=== PATIENT | female | born 1930 | race Caucasian/White ===

== ENCOUNTER 2016-09-19 22:48 | Emergency (ER) | payer MEDICARE, OTHER ==
[~2016-09-19] VITALS: Ht 160 cm; Wt 62.6 kg
[~2016-09-19 22:48] MED LIST: ACET-2605 GT; ACET650S26 GT; BISA10SU8 RC; BLOO-140 IN; DEXT15DR EACHEYE; DOCU-270 GT; FLUC100P4 IV; FURO40TA5 GT; HYDR-3326 GT; INSU100V3 SQ; MAG30ORA GT; MAGN400O6 GT; MERO1VIA3 IV; METO5SOL GT; MULT-24 GT; NUT.237L31 GT; ONDA-25 GT; PANT40SU2 GT; POTA20PA15 GT; RIVA10TA GT; VANC1VIA GT; VIT500LI GT; ZINC220C6 GT
[2016-09-19] MEDS ORDERED: BUPIVACAINE 0.25% 75 MG/30 ML VIAL ONE (23:24)
[2016-09-19 23:28] VITALS: BP 113/63
[2016-09-19] MEDS ORDERED: BUPIVACAINE MPF W/EPI 0.25% 30 ML VIAL IJ ONE (23:30)
[2016-09-20 02:08] VITALS: BP 124/66
[2016-09-20 04:45] VITALS: BP 115/68
== END 2016-09-20 04:46 | disposition home or self-care (01) ==
LOC: ER 22:50
DX: L02.01 Cutaneous abscess of face (principal); I10 Essential (primary) hypertension; K21.9 Gastro-esophageal reflux disease without esophagitis; F03.90 Unspecified dementia, unspecified severity, without behavioral disturbance, psychotic disturbance, mood disturbance, and anxiety; M19.90 Unspecified osteoarthritis, unspecified site; J44.9 Chronic obstructive pulmonary disease, unspecified; F41.9 Anxiety disorder, unspecified; Z86.73 Personal history of transient ischemic attack (TIA), and cerebral infarction without residual deficits; G20 Parkinson's disease; Z98.890 Other specified postprocedural states
CPT/HCPCS: 10060; 70450; 99284; A4606; A6403; A6407; J3490; Z7610

== ENCOUNTER 2017-05-22 14:50 | Inpatient (IN) | payer MEDICARE, OTHER ==
[~2017-05-22] VITALS: Ht 157.5 cm; Wt 85.3 kg
[~2017-05-22 14:50] MED LIST changes: -ACET-2605 GT; +AMLO2.5T GT; +CARB1TAB19 GT; +CHLO15MO2 MM; +CLON0.1T GT; +CLOP75TA2 GT; -DEXT15DR EACHEYE; -DOCU-270 GT; +DOCU50LI GT; -FLUC100P4 IV; +IPRA3AMP IH; -MAG30ORA GT; -MERO1VIA3 IV; -METO5SOL GT; -MULT-24 GT; +NA P133E RC; -ONDA-25 GT; +POTA20LI4 GT; -POTA20PA15 GT; -RIVA10TA GT; +SIMV20TA6 GT; -VANC1VIA GT; -VIT500LI GT; -ZINC220C6 GT
--- NOTE | 2017-05-22 14:50 | NUR ---
BB PRIVATE EMS FROM [facility] FOR ABNORMAL LABS WBC-34, K-6.8, BUN-61. GOWNED PT. PLACED ON MONITOR. AWAITING MD ORDER ORDER. [facility] #8 AC 10 TV 500 FIO2 40 % PEEP 5 . PT HAS LEFT WRIST #22 IV ACCESS DIRECTOR OF MANAGED SERVICES. PT ON GTUBE . INCONTINENT ON DIAPER
[2017-05-22 15:08] VITALS: BP 98/80
--- NOTE | 2017-05-22 15:08 | NUR ---
PT. 86 Y OLD FEMALE REC. IN ER FOR LOW B/P PLACED ON VENT (TRACH PORTEX# 8) AC,10,500,40%+5 WITH NOTED SETTINGS, ALARMS ARE SET AND FUNCTIONAL. NO DISTRESS NOTED EQUAL CHEST RISE NOTE. VENT PLUGGED TO RED OUTLET AND CONTINUE FOR MONITORING AMBU BAG REMAIN AT THE BEDSIDE.
--- NOTE | 2017-05-22 15:15 | NUR ---
WESLEY #20 IV ACCESS. BLOOD SAMPLE COLLECTED SENT TO LAB
[2017-05-22 15:16] LABS: BASOPHILS # (AUTO) 0.2 /CMM (0.0-0.2); BASOPHILS % (AUTO) 0.7 % (0.0-2.0); EOSINOPHILS % (AUTO) 0.1 % (0.0-6.0); HEMATOCRIT 23 % (33-45); HEMOGLOBIN 7.6 g/dL (11.5-14.8); LYMPHOCYTES # (AUTO) 1.3 /CMM (0.8-4.8); LYMPHOCYTES % (AUTO) 4.3 % (20.0-44.0); MEAN CORPUSCULAR HEMOGLOBIN 29 PG (26.0-33.0); MEAN CORPUSCULAR HGB CONC 33 g/dl (31.0-36.0); MEAN CORPUSCULAR VOLUME 89 fL (82-100); MONOCYTES # (AUTO) 1.4 /CMM (0.1-1.30); MONOCYTES % (AUTO) 4.6 % (2.0-12.0); NEUTROPHILS # (AUTO) 27.5 /CMM (1.8-8.9); NEUTROPHILS % (AUTO) 90.3 % (43.0-81.0); PLATELET COUNT (AUTO) 194 /CMM (150-450); RDW COEFFICIENT OF VARIATION 14.4 (11.5-15.0)
[2017-05-22] MEDS ORDERED: FURO20TA4 GT (15:41)
[2017-05-22] MEDS ORDERED: ZINC220T GT (15:41)
[2017-05-22] MEDS ORDERED: ASCO500S2 GT (15:41)
[2017-05-22] MEDS ORDERED: MULT-213 GT (15:41)
[2017-05-22 15:43] LABS: INR 1.2 (0.87-1.13); PROTHROMBIN TIME 12.5 SECS (9.5-12.7)
--- NOTE | 2017-05-22 15:45 | NUR ---
URINE SAMPLE COLLECTED SENT TO LAB
[2017-05-22 15:46] LABS: ALANINE AMINOTRANSFERASE 18 U/L (12-78); ALKALINE PHOSPHATASE 503 U/L (46-116); ASPARTATE AMINOTRANSFERASE 42 U/L (15-37); BILIRUBIN,DIRECT 0.4 mg/dL (0.0-0.2); BILIRUBIN,TOTAL 0.6 mg/dL (0.2-1.0); CALCIUM, SERUM 8.3 mg/dL (8.5-10.1); CARBON DIOXIDE 26 mmol/L (21-32); CHLORIDE 103 mmol/L (98-107); CREATININE 1.3 mg/dL (0.6-1.3); GLUCOSE 168 mg/dL (74-106); POTASSIUM 5.9 mmol/L (3.5-5.1); SODIUM SERUM 138 mmol/L (136-145); TOTAL PROTEIN, SERUM 5.9 g/dL (6.4-8.2); UREA NITROGEN, BLOOD 71 mg/dL (7-18)
[2017-05-22 15:48] LABS: TROPONIN I 0.195 ng/mL (0.00-0.056)
[2017-05-22 15:55] LABS: ALBUMIN 1.1 g/dL (3.4-5.0)
[2017-05-22 16:00] LABS: APPEARANCE,URINE SL CLOUDY (CLEAR); BILIRUBIN,URINE NEGATIVE (NEGATIVE); BLOOD, URINE NEGATIVE Ery/uL (NEGATIVE); COLOR,URINE YELLOW (YELLOW); KETONES,URINE NEGATIVE (NEGATIVE); LEUKOCYTE ESTERASE ,URINE TRACE (NEGATIVE); NITRITE, URINE NEGATIVE (NEGATIVE); PH,URINE 5.5 (5.0-8.0); PROTEIN,URINE NEGATIVE (NEGATIVE); UGLUCOSE NEGATIVE (NEGATIVE)
[2017-05-22 16:09] LABS: WHITE BLOOD COUNT (AUTO) 30.4 K/uL (4.3-11.0)
[2017-05-22] MEDS ORDERED: ASPIRIN 81 MG TAB.CHEW ONE (16:20)
[2017-05-22] MEDS ORDERED: NA PHOS,M-B/NA PHOS,DI-BA 1 EA ENEMA RC PRN (16:30)
[2017-05-22] MEDS ORDERED: ACETAMINOPHEN 650 MG/20.3 ML UDC GT PRN (16:30)
[2017-05-22] MEDS ORDERED: ASPIRIN 81 MG TAB.CHEW GT ONE (16:30)
[2017-05-22] MEDS ORDERED: HYDROCODONE/APAP 5/325MG 1 EACH TABLET GT PRN (16:30)
[2017-05-22] MEDS ORDERED: ACETAMINOPHEN 325 MG TABLET PO PRN (16:30)
[2017-05-22] MEDS ORDERED: MAGNESIUM HYDROXIDE 30 ML UDC GT PRN (16:30)
[2017-05-22] MEDS ORDERED: DEXTROSE 50%-WATER 50 ML DISP.SYRIN IV PRN (16:30)
[2017-05-22] MEDS ORDERED: Z GUARD REMEDY 2 OZ OINT TP PRN (16:30)
[2017-05-22] MEDS ORDERED: MAG HYDROX/AL HYDROX/SIMETH 30 ML UDC PO PRN (16:30)
[2017-05-22] MEDS ORDERED: BISACODYL SUPP (10 MG) 10 MG/SUPP.RECT SUPP.RECT RC PRN (16:30)
[2017-05-22] MEDS ORDERED: MULTIVITS,TH W-FE,OTHER MIN 1 TAB TABLET GT SCH (16:30)
[2017-05-22] MEDS ORDERED: IV NS 0.9% 1,000 ML BAG IV ONE (16:30)
[2017-05-22] MEDS ORDERED: ONDANSETRON HCL/PF 4 MG/2 ML VIAL IVP PRN (16:30)
[2017-05-22] MEDS ORDERED: CLONIDINE HCL 0.1 MG TABLET GT PRN (16:30)
[2017-05-22 16:44] LABS: BACTERIA,URINE Few /HPF (None Seen); RBC,URINE 0-2 /HPF (0-2); SQUAMOUS EPITHELIAL CELL,UR Few /HPF (None Seen)
[2017-05-22 16:48] LABS: CHOLESTEROL 37 mg/dL (<200); HDL CHOLESTEROL 10 mg/dL (40-60); LDL 13 mg/dL (0-99); TRIGLYCERIDES 138 mg/dL (30-150)
[2017-05-22 16:54] LABS: BAND % (MANUAL) 1 % (0.0-5.0); LYMPHOCYTES % (MANUAL) 2 % (16-48); MONOCYTES % (MANUAL) 10 % (0-11.0); NEUTROPHILS % (MANUAL) 87 (42-76)
[2017-05-22] MEDS ORDERED: PIPERACILLIN /TAZOBACTAM 3.375 G in IV D5W 50 ML IV ONE (17:00)
[2017-05-22] MEDS ORDERED: VANCOMYCIN 1 GM in IV D5W 250 ML IV ONE (17:00)
--- NOTE | 2017-05-22 17:08 | NUR ---
GAVE REPORT LI RN ROOM 328 ADMITTING DX RENAL FAILURE DR HERNANDEZ ADMITTING. TRANSFER VIA ACLS PROTOCOL
--- NOTE | 2017-05-22 17:45 | NUR ---
ROUSTABOUT CREW PUSHER: ADMISSION NOTE RECEIVED PT MAI FROM ER WITH DX OF RENAL FAILURE AND ABNORMAL LABS. PT ON MECHANICAL VENTILATION. SETTINGS ARE PORTEX 8, PEEP 5, TV 500, FIO2 40%. VS STABLE. BP 114/63, PULSE 100, O2 100%, TEMP 98.2, RR18. NO DISTRESS NOTED. NO SOB NOTED. NO PAIN NOTED. ORDERS PLACED MD HERNANDEZ. CONTACT ISOLATION FOR PREVIOUS ESBL URINE. R AHND IV AND L WRIST IV. RUNNING NS AT 75ML/HR. SITE CLEAR AND PATENT. G-TUBE SITE CLEAR AND PATENT. FEEDING OG GLYTROL AT 50ML/HR. AWAITING ARRIVAL. ROMERO CATH IN PLACE AND DRAINING. SKIN CARE DONE. WOUNDS ON SACRUM. DRESSING INTACT. ABDOMINAL SCARS, BRUISES ON BLE AND BUE NOTED. EDEMA NON-PITTING ON BLE. EDEMA +4 ON BLE. REPORT RECEIVED FROM SERENA IN ER. PT RESTING COMFORTABLY IN BED. CALL LIGHT WITHIN REACH. FALL PRECAUTIONS IN PLACE.
[2017-05-22] MEDS: IV NS 0.9% 1,000 ML IV PRN (17:47)
--- NOTE | 2017-05-22 17:50 | NUR ---
BLOOD GLUCOSE 163. NO INSULIN GIVEN DUE TO NO FEEDING STARTED.
[2017-05-22] MEDS ORDERED: Medication Not On Formulary EA (Blood Sugar Diagnostic, Drum (Accu-Chek Compact) 1 EACH) IN SCH (18:00)
[2017-05-22] MEDS: POTASSIUM CHLORIDE 20 MEQ POWDER PACKET GT SCH (18:04)
[2017-05-22] MEDS: ENOXAPARIN SODIUM 30 MG/0.3 ML DISP.SYRIN SQ SCH (18:04)
[2017-05-22] MEDS: CARBIDOPA/LEVODOPA 10/100 MG 1 UDTAB GT SCH (18:04)
[2017-05-22] MEDS: DOCUSATE SODIUM LIQ 100 MG/10 ML UDC GT SCH (18:04)
[2017-05-22] MEDS: CHLORHEXIDINE GLUCONATE 15 ML UDC MM SCH (18:04)
[2017-05-22] MEDS: BLOOD SUGAR DIAGNOSTIC 1 EACH STRIP VI SCH ×2 (18:06→22:09)
[2017-05-22] MEDS ORDERED: FEE PK DOSING 1 MIN EA MC ONE (18:38)
--- NOTE | 2017-05-22 18:49 | NUR ---
GEOLOGICAL SAMPLE TESTER: CLOSING NOTE PT A/OX1. UNABLE TO ASSES. ABLE TO FOLLOW COMMANDS. ON MECHANICAL VENTILATION. PORTEX 8, PEEP 5, FIO2 40, TV 500. ROMERO CATH IN PLACE AND DRAINING 100ML. ON TELE MONITOR. VS STABLE. G-TUBE PATENT AND INTACT. R HAND IV. L WRIST IV RUNNING NS AT 75ML/HR. SITE CLEAR AND PATENT. TURNED AND REPOSITIONED Q 2 HOURS. RESTING COMFORTABLY IN BED. CALL LIGHT WITHIN REACH.
[2017-05-22 18:51] VITALS: BP 114/63
--- NOTE | 2017-05-22 19:07 | NUR ---
CALLED PHARMACY FOR MERREM IV. AWAITING DELIVERY. ENDORSE TO THE NEXT SHIFT.
--- NOTE | 2017-05-22 19:50 | NUR ---
QUILLER HAND NOTE: PATIENT RESTING IN BED, NO ACUTE DISTRESS NOTED. BREATHING EVEN AND UNLABORED, NO SOB NOTED, VENT SETTINGS IN PLACE. IV TO RIGHT HAND IN PLACE, INFUSING NS AT 75 ML/HR. TELE READING SR TO SINUS TACHY 90-110. ROMERO CATHETER IN PLACE, EMPTY AT THIS TIME. ISOLATION PRECAUTIONS OBSERVED. BED LOCKED AND IN LOWEST POSITION, CALL LIGHT IN REACH. WILL CONTINUE TO MONITOR.
[2017-05-22] MEDS: MEROPENEM 500 MG in IV NS 0.9% 50 ML IV SCH (19:59)
[2017-05-22 20:00] VITALS: BP 105/48
[2017-05-22] MEDS: HYDROCODONE/APAP 5/325MG 1 EACH TABLET GT SCH (22:08)
[2017-05-22] MEDS: SIMVASTATIN 20 MG TABLET GT SCH (22:08)
[2017-05-22] MEDS: GLYTROL 1,000 ML BAG GT SCH (22:09)
[2017-05-23] VITALS: BP 116/56
--- NOTE | 2017-05-23 00:58 | NUR ---
SOIL CHECKER NOTE: PATIENT LACTIC ACID 3.4, LOWER THAN ON ADMISSION AND TROPONIN LEVEL 0.127 ALSO LOWER THAN ON ADMISSION. CALLED TIP BANDING MACHINE OPERATOR MD, SPOKE TO CHRISTEN DRIVER, JAVA ANDROID DEVELOPER WITH NEW ORDERS FOR NS 500 BOLUS ONCE AND TO REPEAT LACTIC ACID IN MORNING. ORDER NOTED AND CARRIED OUT. NS ALREADY HANGING AT BEDSIDE AND SET FOR BOLUS. WILL CONTINUE TO MONITOR.
--- NOTE | 2017-05-23 01:00 | NUR ---
ADULT BASIC EDUCATION MANAGER NOTE: PATIENT TO HAVE LACTIC ACID LEVEL TO BE DRAWN, INFORMED LAB, JANEL THAT PATIENT IS TO JUST RECEIVE NS BOLUS OF 500ML NOW AND TO REPEAT THE LACTIC ACID LEVEL LATER THIS MORNING AFTER BOLUS COMPLETED. PATIENT TO HAVE LABS DONE WITH MORNING LABS. WILL CONTINUE TO MONITOR.
[2017-05-23] MEDS: IV NS 0.9% 1,000 ML IV PRN (03:22)
[2017-05-23 04:00] VITALS: BP 117/55
--- NOTE | 2017-05-23 06:40 | NUR ---
RESIDENCE SUPERVISOR NOTE: PATIENT RESTING IN BED, NO ACUTE DISTRESS NOTED. BREATHING EVEN AND UNLABORED, NO SOB NOTED, VENT SETTINGS IN PLACE. IV TO RIGHT HAND IN PLACE AND LEFT WRIST IN PLACE, INFUSING NS AT 75 ML/HR. TELE READING SR TO SINUS TACHY 90-110. ROMERO CATHETER IN PLACE. ISOLATION PRECAUTIONS OBSERVED. BED LOCKED AND IN LOWEST POSITION, CALL LIGHT IN REACH. WILL ENDORSE TO DAY NURSE TO CONTINUE WITH PLAN OF CARE.
[2017-05-23] MEDS: BLOOD SUGAR DIAGNOSTIC 1 EACH STRIP VI SCH ×4 (07:19→22:19)
[2017-05-23] MEDS: INSULIN REGULAR, HUMAN 100 UNIT/ML 3 ML VIAL SQ PRN ×3 (07:20→17:27)
--- NOTE | 2017-05-23 07:30 | NUR ---
PT RECEIVED RESTING COMFORTABLY IN BED WITH EYES CLOSED. NO S/S OR C/O PAIN OR DISTRESS NOTED. SIDE RAILS UP X2, CALL LIGHT LEFT WITHIN REACH. WILL CONTINUE PLAN OF CARE.
[2017-05-23 08:00] VITALS: BP 118/76
[2017-05-23 08:16] LABS: HEMATOCRIT 23 % (33-45); HEMOGLOBIN 7.6 g/dL (11.5-14.8); LYMPHOCYTES # (AUTO) 0.9 /CMM (0.8-4.8); LYMPHOCYTES % (AUTO) 2.6 % (20.0-44.0); MEAN CORPUSCULAR HEMOGLOBIN 29 PG (26.0-33.0); MEAN CORPUSCULAR HGB CONC 32 g/dl (31.0-36.0); MEAN CORPUSCULAR VOLUME 90 fL (82-100); MONOCYTES # (AUTO) 1.3 /CMM (0.1-1.30); MONOCYTES % (AUTO) 4.1 % (2.0-12.0); NEUTROPHILS # (AUTO) 30.4 /CMM (1.8-8.9); NEUTROPHILS % (AUTO) 93.3 % (43.0-81.0); PLATELET COUNT (AUTO) 181 /CMM (150-450); RDW COEFFICIENT OF VARIATION 15.5 (11.5-15.0); RED BLOOD CELL COUNT(AUTO) 2.62 MIL/uL (4.0-5.2)
[2017-05-23 08:29] LABS: CALCIUM, SERUM 7.6 mg/dL (8.5-10.1); CARBON DIOXIDE 23 mmol/L (21-32); CHLORIDE 108 mmol/L (98-107); CREATININE 1.2 mg/dL (0.6-1.3); GLUCOSE 220 mg/dL (74-106); MAGNESIUM 2.6 mg/dL (1.8-2.4); PHOSPHORUS 4.8 mg/dL (2.5-4.9); POTASSIUM 4.6 mmol/L (3.5-5.1); SODIUM SERUM 143 mmol/L (136-145); UREA NITROGEN, BLOOD 62 mg/dL (7-18)
[2017-05-23 08:48] LABS: WHITE BLOOD COUNT (AUTO) 32.5 K/uL (4.3-11.0)
[2017-05-23] MEDS ORDERED: ASCORBIC ACID SYRUP 500 MG/5 ML UDC GT SCH (09:00)
[2017-05-23] MEDS: ASPIRIN 81 MG TAB.CHEW GT SCH (09:22)
[2017-05-23] MEDS: CLOPIDOGREL BISULFATE 75 MG TABLET GT SCH (09:22)
[2017-05-23] MEDS: ZINC SULFATE 220 MG CAPSULE GT SCH (09:22)
[2017-05-23] MEDS: CARBIDOPA/LEVODOPA 10/100 MG 1 UDTAB GT SCH ×3 (09:22→17:15)
[2017-05-23] MEDS: ASCORBIC ACID 500 MG TABLET PO SCH (09:22)
[2017-05-23] MEDS: AMLODIPINE BESYLATE 2.5 MG TABLET GT SCH (09:23)
[2017-05-23] MEDS: HYDROCODONE/APAP 5/325MG 1 EACH TABLET GT SCH ×2 (09:23→22:02)
[2017-05-23] MEDS: POTASSIUM CHLORIDE 20 MEQ POWDER PACKET GT SCH (09:24)
[2017-05-23] MEDS: DOCUSATE SODIUM LIQ 100 MG/10 ML UDC GT SCH ×2 (09:24→17:15)
[2017-05-23] MEDS: MULTIVITAMINS,THERAGRAN 1 UDTAB TABLET PO SCH (09:24)
[2017-05-23] MEDS: CHLORHEXIDINE GLUCONATE 15 ML UDC MM SCH ×2 (09:24→17:15)
[2017-05-23] MEDS: MEROPENEM 500 MG in IV NS 0.9% 50 ML IV SCH ×2 (09:26→22:05)
[2017-05-23 10:28] LABS: LYMPHOCYTES % (MANUAL) 4 % (16-48); NEUTROPHILS % (MANUAL) 96 (42-76)
[2017-05-23 12:00] VITALS: BP 124/60
[2017-05-23] MEDS: PANTOPRAZOLE 40 MG/PACK PACK GT SCH (12:12)
--- NOTE | 2017-05-23 14:14 | NUR ---
WOUND CARE CONSULT: PT PRESENTS WITH MULTIPLE WOUNDS AND SKIN ISSUES INCLUDING STAGE 4 SACRAL ULCER, STAGE 2 LEFT BUTTOCK ULCER, WEEPING EDEMA TO UPPER EXTREMITIES, MULTIPLE BRUISES TO EXTREMITIES WITH 4+ PITTING EDEMA TO LOWER EXTREMITIES, ALL PRESENT ON ADMISSION. PT ON PAWEL ISOFLEX LOW AIRLOSS BED. ALL SKIN PROTECTION AND WOUND RECOMMENDATIONS DISCUSSED WITH NURSING STAFF. RECOMMEND SURGICAL CONSULT. WILL SEE PRN. MCMANUS IN AGREEMENT WITH PLAN OF CARE. Addendum: 05/23/17 at 1416 by CRISTINA MARTINEZ WNDNU Amended: Links added.
[2017-05-23] MEDS: HYDROGEL DRESSING 90 GM TUBE TP SCH (14:30)
[2017-05-23] MEDS ORDERED: HYDROGEL DRESSING 90 GM TUBE TP PRN (14:30)
[2017-05-23 16:00] VITALS: BP 127/65
[2017-05-23] MEDS: VANCOMYCIN 1 GM in IV D5W 250 ML IV SCH (17:17)
--- NOTE | 2017-05-23 18:58 | NUR ---
CHANGE OF SHIFT REPORT PT RESTING COMFORTABLY IN BED. NO S/S OR C/O PAIN OR DISTRESS NOTED. SIDE RAILS UP X2. CALL LIGHT LEFT WITHIN REACH. PT KEPT CLEAN, DRY, AND COMFORTABLE. NO SIGNIFICANT CHANGES SINCE PREVIOUS SHIFT. WILL GIVE REPORT TO KM FOY.
--- NOTE | 2017-05-23 19:45 | NUR ---
TELE/RN NOTES RECEIVED PT. LYING IN BED RESTING. PT. IS VENT/TRACH DEPENDENT. BREATHING EVEN AND UNLABORED. NO SOB, RESPIRATORY DISTRESS OR S/S OF PAIN NOTED AT THIS TIME. PT. WITH EXTERNAL PROJECT DESIGN ENGINEER PRESENT AND INTACT. CURRENT RHYTHM = SINUS TACH 107. PT. WITH RIGHT HAND 20 GAUGE IV SALINE LOCK AND LEFT WRIST 22 GAUGE PERIPHERAL IV PRESENT, PATENT AND INTACT ADMINISTERING TO PT. NS @ 75 L/HR. PT. WITH ROMERO CATHETER PRESENT, PATENT AND INTACT DRAINING CLEAR YELLOW URINE. PT. EXTREMITIES EDEMATOUS AND OFFLOADED ON PILLOWS. BED LOCKED AND IN LOWEST POSITION, SIDE RAILS UP X3, BED ALARM ON, WILL CONTINUE TO MONITOR.
[2017-05-23 20:23] VITALS: BP 102/60
[2017-05-23] MEDS: ENOXAPARIN SODIUM 30 MG/0.3 ML DISP.SYRIN SQ SCH ×2 (21:00→22:47)
[2017-05-23] MEDS: SIMVASTATIN 20 MG TABLET GT SCH (22:01)
[2017-05-23] MEDS: *INSULIN REGULAR(HUMULIN R)HUM 100 UNIT/ML VIAL SQ PRN (22:20)
[2017-05-23] MEDS: GLYTROL 1,000 ML BAG GT SCH (22:48)
[2017-05-24 00:17] VITALS: BP 111/50
[2017-05-24 04:00] VITALS: BP 118/70
[2017-05-24] MEDS ORDERED: VANCOMYCIN 1 GM in IV D5W 250 ML IV SCH (05:00)
--- NOTE | 2017-05-24 07:00 | NUR ---
TELE/RN NOTES PT. IS LYING IN BED RESTING. PT. IS VENT/TRACH DEPENDENT. BREATHING EVEN AND UNLABORED. NO SOB, RESPIRATORY DISTRESS OR S/S OF PAIN NOTED AT THIS TIME. PT. WITH EXTERNAL LEAD LEVEL DESIGNER PRESENT AND INTACT. CURRENT RHYTHM = SINUS TACH 109. PT. WITH RIGHT HAND 20 GAUGE IV SALINE LOCK AND LEFT WRIST 22 GAUGE PERIPHERAL IV PRESENT, PATENT AND INTACT ADMINISTERING TO PT. NS @ 75 L/HR. PT. WITH ROMERO CATHETER PRESENT, PATENT AND INTACT DRAINING CLEAR YELLOW URINE. PT. EXTREMITIES EDEMATOUS AND OFFLOADED ON PILLOWS. ALL PT. NEEDS MET. PT. OFFLOADED. TURNED AND REPOSITIONED Q2H AND NEEDED. BED LOCKED AND IN LOWEST POSITION, SIDE RAILS UP X3, BED ALARM ON, WILL ENDORSE TO DAYSHIFT NURSE FOR CONTINUITY OF CARE.
[2017-05-24] MEDS: INSULIN REGULAR, HUMAN 100 UNIT/ML 3 ML VIAL SQ PRN ×3 (07:02→18:02)
--- NOTE | 2017-05-24 07:25 | NUR ---
TELE/RN NOTES PT. IS LYING IN BED RESTING. PT. IS VENT/TRACH DEPENDENT TOLERATED WELL AT THIS TIME. BREATHING EVEN AND UNLABORED. NO SOB, RESPIRATORY DISTRESS IN NO APPARENT PAIN AT THIS TIME. PT. WITH RIGHT HAND 20 GAUGE IV SALINE LOCK AND LEFT WRIST 22 GAUGE PERIPHERAL IV PRESENT, PATENT AND INTACT ADMINISTERING TO PT. NS @ 75 L/HR. PT. WITH ROMERO CATHETER PRESENT, PATENT AND INTACT DRAINING CLEAR YELLOW URINE. PT. EXTREMITIES EDEMATOUS AND OFFLOADED ON PILLOWS. ALL PT. NEEDS MET. BED LOCKED AND IN LOWEST POSITION, SIDE RAILS UP X3, BED ALARM ON, WILL CONTINUE TO MONITOR
[2017-05-24] MEDS: BLOOD SUGAR DIAGNOSTIC 1 EACH STRIP VI SCH ×4 (07:30→21:42)
[2017-05-24 08:00] VITALS: BP 118/66
[2017-05-24 08:19] LABS: CALCIUM, SERUM 7.5 mg/dL (8.5-10.1); CARBON DIOXIDE 24 mmol/L (21-32); CHLORIDE 108 mmol/L (98-107); CREATININE 1.1 mg/dL (0.6-1.3); GLUCOSE 204 mg/dL (74-106); POTASSIUM 4.2 mmol/L (3.5-5.1); SODIUM SERUM 143 mmol/L (136-145); UREA NITROGEN, BLOOD 60 mg/dL (7-18)
[2017-05-24 09:12] LABS: BASOPHILS % (AUTO) 0.1 % (0.0-2.0); HEMATOCRIT 23 % (33-45); HEMOGLOBIN 7.4 g/dL (11.5-14.8); LYMPHOCYTES # (AUTO) 1.1 /CMM (0.8-4.8); LYMPHOCYTES % (AUTO) 3.6 % (20.0-44.0); MEAN CORPUSCULAR HEMOGLOBIN 29 PG (26.0-33.0); MEAN CORPUSCULAR HGB CONC 32 g/dl (31.0-36.0); MEAN CORPUSCULAR VOLUME 91 fL (82-100); MONOCYTES # (AUTO) 1.1 /CMM (0.1-1.30); MONOCYTES % (AUTO) 3.6 % (2.0-12.0); NEUTROPHILS # (AUTO) 28.2 /CMM (1.8-8.9); NEUTROPHILS % (AUTO) 92.7 % (43.0-81.0); PLATELET COUNT (AUTO) 164 /CMM (150-450); RDW COEFFICIENT OF VARIATION 15.1 (11.5-15.0); RED BLOOD CELL COUNT(AUTO) 2.56 MIL/uL (4.0-5.2)
[2017-05-24] MEDS: CHLORHEXIDINE GLUCONATE 15 ML UDC MM SCH ×2 (09:15→17:29)
[2017-05-24] MEDS: ASPIRIN 81 MG TAB.CHEW GT SCH (09:15)
[2017-05-24] MEDS: CARBIDOPA/LEVODOPA 10/100 MG 1 UDTAB GT SCH ×3 (09:15→17:29)
[2017-05-24] MEDS: ZINC SULFATE 220 MG CAPSULE GT SCH (09:15)
[2017-05-24 09:16] LABS: WHITE BLOOD COUNT (AUTO) 30.5 K/uL (4.3-11.0)
[2017-05-24] MEDS: ASCORBIC ACID 500 MG TABLET PO SCH (09:17)
[2017-05-24] MEDS: HYDROCODONE/APAP 5/325MG 1 EACH TABLET GT SCH ×2 (09:17→21:23)
[2017-05-24] MEDS: MULTIVITAMINS,THERAGRAN 1 UDTAB TABLET PO SCH (09:18)
[2017-05-24] MEDS: DOCUSATE SODIUM LIQ 100 MG/10 ML UDC GT SCH ×2 (09:18→17:00)
[2017-05-24] MEDS: CLOPIDOGREL BISULFATE 75 MG TABLET GT SCH (09:18)
[2017-05-24] MEDS: POTASSIUM CHLORIDE 20 MEQ POWDER PACKET GT SCH (09:19)
[2017-05-24] MEDS: AMLODIPINE BESYLATE 2.5 MG TABLET GT SCH (09:22)
[2017-05-24] MEDS: HYDROGEL DRESSING 90 GM TUBE TP SCH (09:26)
[2017-05-24 09:42] LABS: BAND % (MANUAL) 2 % (0.0-5.0); LYMPHOCYTES % (MANUAL) 4 % (16-48); MONOCYTES % (MANUAL) 6 % (0-11.0); NEUTROPHILS % (MANUAL) 88 (42-76)
[2017-05-24] MEDS: MEROPENEM 500 MG in IV NS 0.9% 50 ML IV SCH ×2 (10:23→21:23)
[2017-05-24] MEDS: IV NS 0.9% 1,000 ML IV PRN (11:42)
[2017-05-24] MEDS: PANTOPRAZOLE 40 MG/PACK PACK GT SCH (11:42)
[2017-05-24 16:00] VITALS: BP 123/64
[2017-05-24] MEDS: VANCOMYCIN 1 GM in IV D5W 250 ML IV SCH (18:12)
--- NOTE | 2017-05-24 19:05 | NUR ---
DIRECTOR ADULT NOTES RECEIVED PT IN BED, NO DISTRESS, NO SOB NOTED. PT IS NON VERBAL. TRACH IS INTACT AND PATENT, SUCTIONED PRN. ON TELE MONITOR, SINUS TACHY 110 AT THIS TIME. ON GLYTROL GTF. NO RESIDUAL NOTED. GT IS INTACT AND PATENT. NO S/S OF HYPO/ HYPERGLYCEMIA NOTED. ON ASPIRATION PRECAUTION. ALL NEEDS ATTENDED AND MET. KEPT COMFORTABLE. CALL LIGHT WITHIN REACH. WILL CONT TO MONITOR.
[2017-05-24 20:00] VITALS: BP 119/65
[2017-05-24] MEDS: ENOXAPARIN SODIUM 30 MG/0.3 ML DISP.SYRIN SQ SCH (21:00)
[2017-05-24] MEDS: SIMVASTATIN 20 MG TABLET GT SCH (21:23)
[2017-05-24] MEDS: *INSULIN REGULAR(HUMULIN R)HUM 100 UNIT/ML VIAL SQ PRN (21:50)
--- NOTE | 2017-05-24 21:59 | NUR ---
PLACED A CALL TO DR. SOLO REGARDING LOVENOX, STILL AWAITING FOR MD'S CALL BACK.
[2017-05-24] MEDS: GLYTROL 1,000 ML BAG GT SCH (22:45)
--- NOTE | 2017-05-24 22:47 | NUR ---
SPOKE WITH DR. SOLO REGARDING LOVENOX , PT'S HGB : 7.4. PER MD TO HOLD TONIGHT'S DOSE.
[2017-05-25] VITALS: BP 102/57
--- NOTE | 2017-05-25 | NUR ---
SPOKE WITH DR. SOLO REGARDING LOVENOX , PT'S HGB : 7.5. PER MD TO HOLD TONIGHT'S DOSE , AND DISCUSS AND INFORM MD IN AM, WILL ENDORSE TO NEXT SHIFT RN. Addendum: 05/26/17 at 0041 by QUINTON KLEIN RN INCORRECT TIME DOCUMENTATION
[2017-05-25 04:00] VITALS: BP 120/65
[2017-05-25] MEDS: IV NS 0.9% 1,000 ML IV PRN (04:49)
[2017-05-25] MEDS: BLOOD SUGAR DIAGNOSTIC 1 EACH STRIP VI SCH ×4 (06:36→21:49)
[2017-05-25] MEDS: INSULIN REGULAR, HUMAN 100 UNIT/ML 3 ML VIAL SQ PRN ×3 (06:38→18:32)
--- NOTE | 2017-05-25 07:31 | NUR ---
CREDIT CORRESPONDENCE CLERK NOTES PT IN BED, NO DISTRESS, NO SOB NOTED. PT IS NON VERBAL. TRACH IS INTACT AND PATENT, SUCTIONED PRN. ON TELE MONITOR, SINUS TACHY 111 AT THIS TIME. ON GLYTROL GTF, LAVERN WELL. NO RESIDUAL NOTED. GT IS INTACT AND PATENT. F/C IS INTACT AND PATENT DRAINING WITH YELLOW URINE. NO HEMATURIA NOTED. NO S/S OF HYPO/ HYPERGLYCEMIA NOTED. ASPIRATION PRECAUTION OBSERVED. ALL NEEDS ATTENDED AND MET. KEPT COMFORTABLE. CALL LIGHT WITHIN REACH. ENDORSED TO NEXT SHIFT FOR DONNA. .
[2017-05-25 07:50] LABS: BASOPHILS % (AUTO) 0.1 % (0.0-2.0); EOSINOPHILS % (AUTO) 0.1 % (0.0-6.0); HEMATOCRIT 23 % (33-45); HEMOGLOBIN 7.5 g/dL (11.5-14.8); LYMPHOCYTES # (AUTO) 1.1 /CMM (0.8-4.8); LYMPHOCYTES % (AUTO) 3.7 % (20.0-44.0); MEAN CORPUSCULAR HEMOGLOBIN 29 PG (26.0-33.0); MEAN CORPUSCULAR HGB CONC 32 g/dl (31.0-36.0); MEAN CORPUSCULAR VOLUME 91 fL (82-100); MONOCYTES # (AUTO) 1.3 /CMM (0.1-1.30); MONOCYTES % (AUTO) 4.2 % (2.0-12.0); NEUTROPHILS # (AUTO) 28.5 /CMM (1.8-8.9); NEUTROPHILS % (AUTO) 91.9 % (43.0-81.0); PLATELET COUNT (AUTO) 157 /CMM (150-450); RDW COEFFICIENT OF VARIATION 15.7 (11.5-15.0); RED BLOOD CELL COUNT(AUTO) 2.58 MIL/uL (4.0-5.2)
[2017-05-25 08:00] VITALS: BP 111/67
[2017-05-25 08:09] LABS: CALCIUM, SERUM 7.7 mg/dL (8.5-10.1); CARBON DIOXIDE 21 mmol/L (21-32); CHLORIDE 112 mmol/L (98-107); CREATININE 1.1 mg/dL (0.6-1.3); GLUCOSE 173 mg/dL (74-106); POTASSIUM 4.5 mmol/L (3.5-5.1); SODIUM SERUM 146 mmol/L (136-145); UREA NITROGEN, BLOOD 60 mg/dL (7-18)
[2017-05-25 08:25] LABS: IRON, SERUM 17 ug/dl (50-175); TOTAL IRON BINDING CAPACITY 103 ug/dl (250-450)
[2017-05-25] MEDS: DOCUSATE SODIUM LIQ 100 MG/10 ML UDC GT SCH ×2 (09:32→16:54)
[2017-05-25] MEDS: HYDROCODONE/APAP 5/325MG 1 EACH TABLET GT SCH ×2 (09:32→21:48)
[2017-05-25] MEDS: ZINC SULFATE 220 MG CAPSULE GT SCH (09:32)
[2017-05-25] MEDS: CHLORHEXIDINE GLUCONATE 15 ML UDC MM SCH ×2 (09:32→16:54)
[2017-05-25] MEDS: ASCORBIC ACID 500 MG TABLET PO SCH (09:32)
[2017-05-25] MEDS: ASPIRIN 81 MG TAB.CHEW GT SCH (09:33)
[2017-05-25] MEDS: MULTIVITAMINS,THERAGRAN 1 UDTAB TABLET PO SCH (09:33)
[2017-05-25] MEDS: AMLODIPINE BESYLATE 2.5 MG TABLET GT SCH (09:33)
[2017-05-25] MEDS: CARBIDOPA/LEVODOPA 10/100 MG 1 UDTAB GT SCH ×3 (09:33→16:54)
[2017-05-25] MEDS: POTASSIUM CHLORIDE 20 MEQ POWDER PACKET GT SCH (09:33)
[2017-05-25] MEDS: MEROPENEM 500 MG in IV NS 0.9% 50 ML IV SCH ×2 (09:41→21:47)
[2017-05-25] MEDS: HYDROGEL DRESSING 90 GM TUBE TP SCH (09:47)
[2017-05-25] MEDS: PANTOPRAZOLE 40 MG/PACK PACK GT SCH (11:45)
[2017-05-25] MEDS: CLOPIDOGREL BISULFATE 75 MG TABLET GT SCH (11:45)
--- NOTE | 2017-05-25 13:00 | NUR ---
BEEF GRADER NOTES PT IN BED, AWAKE, NO FACIAL GRIMACING OR MOANING, BREATHING PATTERN NORMAL, DUE MEDS GIVEN ORDERED, BLOOD SUGAR CHECKED, INSULIN GIVEN PER SLIDING SCALE ORDERED, TURNED AND REPOSITIONED Q2 HRS.
[2017-05-25 13:15] LABS: LYMPHOCYTES % (MANUAL) 5 % (16-48); MONOCYTES % (MANUAL) 1 % (0-11.0); NEUTROPHILS % (MANUAL) 94 (42-76)
[2017-05-25] MEDS: IV 1/2NS 1000 ML 1,000 ML IV PRN (13:36)
[2017-05-25 16:00] VITALS: BP 107/59
[2017-05-25] MEDS: VANCOMYCIN 1 GM in IV D5W 250 ML IV SCH (16:59)
--- NOTE | 2017-05-25 19:00 | NUR ---
JUNIOR DATABASE ADMINISTRATOR NOTES PT IN BED, AWAKE, NO SIGN OF PAIN OR DISTRESS, VENT IN PLACE, IV FLUIDS INFUSING WELL, F/C IN PLACE, DRAINING WELL, TURNED AND REPOSITIONED Q2 HRS, SKIN TREATMENTS DONE, KEPT CLEAN AND DRY, PM MEDS GIVEN ORDERED, ALL NEEDS ATTENDED.
--- NOTE | 2017-05-25 19:35 | NUR ---
DIRECTOR CLIENT NOTES RECEIVED PT IN BED, NO DISTRESS, NO SOB NOTED. PT IS NON VERBAL . TRACH IS INTACT AND PATENT, SUCTIONED PRN. ON TELE MONITOR, SINUS TACHY 108 AT THIS TIME. ON GLYTROL GTF. NO RESIDUAL NOTED. GT IS INTACT AND PATENT. NO S/S OF HYPO/ HYPERGLYCEMIA NOTED. ASPIRATION AND SAFETY PRECAUTION OBSERVED. ALL NEEDS AT THIS TIME ANTICIPATED. KEPT COMFORTABLE. CALL LIGHT WITHIN REACH. WILL CONT TO MONITOR.
[2017-05-25 20:00] VITALS: BP 100/55
[2017-05-25] MEDS: ENOXAPARIN SODIUM 30 MG/0.3 ML DISP.SYRIN SQ SCH (21:00)
[2017-05-25] MEDS: SIMVASTATIN 20 MG TABLET GT SCH (21:48)
[2017-05-25] MEDS: *INSULIN REGULAR(HUMULIN R)HUM 100 UNIT/ML VIAL SQ PRN (21:57)
[2017-05-25] MEDS: GLYTROL 1,000 ML BAG GT SCH (22:50)
[2017-05-26] VITALS: BP 104/51
--- NOTE | 2017-05-26 | NUR ---
SPOKE WITH DR. SOOL REGARDING LOVENOX , PT'S HGB : 7.5. PER MD TO HOLD TONIGHT'S DOSE , AND DISCUSS AND INFORM MD IN AM, WILL ENDORSE TO NEXT SHIFT RN.
[2017-05-26 04:00] VITALS: BP_SYST 103; BP_SYST 105; BP_DIAS 47; BP_DIAS 57
[2017-05-26] MEDS: IV 1/2NS 1000 ML 1,000 ML IV PRN (05:07)
[2017-05-26] MEDS: BLOOD SUGAR DIAGNOSTIC 1 EACH STRIP VI SCH ×4 (05:54→22:13)
[2017-05-26] MEDS: INSULIN REGULAR, HUMAN 100 UNIT/ML 3 ML VIAL SQ PRN ×2 (06:00→14:07)
[2017-05-26 06:25] VITALS: BP 109/46
--- NOTE | 2017-05-26 06:36 | NUR ---
RIDING COACH NOTES PT IN BED, NO DISTRESS, NO SOB NOTED. PT IS NON VERBAL . TRACH IS INTACT AND PATENT, SUCTIONED PRN. ON TELE MONITOR, SINUS TACHY 110 AT THIS TIME. ON GLYTROL GTF, LAVERN WELL. NO RESIDUAL NOTED. GT IS INTACT AND PATENT. NO S/S OF HYPO/ HYPERGLYCEMIA NOTED. FC IS INTACT AND PATENT, DRAINING WELL WITH YELLOW URINE, NO HEMATURIA NOTED. ASPIRATION AND SAFETY PRECAUTION OBSERVED. ALL NEEDS ATTENDED. GOOD SKIN CARE PROVIDED. TURNED AND REPOSITIONED Q 2 HOURS . KEPT COMFORTABLE. CALL LIGHT WITHIN REACH. WILL ENDORSE TO NEXT SHIFT FOR DONNA.
--- NOTE | 2017-05-26 08:00 | NUR ---
RN NOTES RECEIVED PATIENT IN THE ROOM ON TRACH, OPENS EYES , NO VERBAL, PATIENT ON MECHANICAL VENTILATOR, HR- 110, V/S TAKEN STABLE, IV LINE ON LEFT AND RIGHT ASHLY, EDEMA UPPER AND LOWER EXTREMITIES, PATIENT ON G-TUBE, RESIDUAL AND PLACEMENT CHECKED, HELD MEDICATION BECAUSE PATIENT GOING CT ABDOMEN WITH CONTRAST. ASSIST TURN AND REPOSITION Q 2 HR, NEEDS ATTENDED AND ANTICIPATED, CALL LIGHT WITHIN TO REACH, SAFETY PRECAUTION PAINTAINED ALL THE TIME WITH HELP OF QUALITY TECH.
[2017-05-26 08:05] LABS: CALCIUM, SERUM 7.7 mg/dL (8.5-10.1); CARBON DIOXIDE 20 mmol/L (21-32); CHLORIDE 112 mmol/L (98-107); CREATININE 1.2 mg/dL (0.6-1.3); GLUCOSE 165 mg/dL (74-106); POTASSIUM 5.1 mmol/L (3.5-5.1); SODIUM SERUM 144 mmol/L (136-145); UREA NITROGEN, BLOOD 67 mg/dL (7-18)
[2017-05-26 08:30] LABS: HEMATOCRIT 23 % (33-45); HEMOGLOBIN 7.3 g/dL (11.5-14.8); LYMPHOCYTES # (AUTO) 1.4 /CMM (0.8-4.8); LYMPHOCYTES % (AUTO) 4.1 % (20.0-44.0); MEAN CORPUSCULAR HEMOGLOBIN 30 PG (26.0-33.0); MEAN CORPUSCULAR HGB CONC 32 g/dl (31.0-36.0); MEAN CORPUSCULAR VOLUME 93 fL (82-100); MONOCYTES # (AUTO) 1.4 /CMM (0.1-1.30); NEUTROPHILS # (AUTO) 31.3 /CMM (1.8-8.9); NEUTROPHILS % (AUTO) 91.9 % (43.0-81.0); PLATELET COUNT (AUTO) 142 /CMM (150-450); RDW COEFFICIENT OF VARIATION 16.2 (11.5-15.0); RED BLOOD CELL COUNT(AUTO) 2.46 MIL/uL (4.0-5.2)
[2017-05-26 08:37] LABS: WHITE BLOOD COUNT (AUTO) 34.1 K/uL (4.3-11.0)
[2017-05-26 08:56] LABS: BAND % (MANUAL) 1 % (0.0-5.0); LYMPHOCYTES % (MANUAL) 2 % (16-48); MONOCYTES % (MANUAL) 2 % (0-11.0); NEUTROPHILS % (MANUAL) 95 (42-76)
[2017-05-26] MEDS: CARBIDOPA/LEVODOPA 10/100 MG 1 UDTAB GT SCH ×3 (09:00→18:12)
[2017-05-26] MEDS: AMLODIPINE BESYLATE 2.5 MG TABLET GT SCH (09:00)
[2017-05-26] MEDS: ASCORBIC ACID 500 MG TABLET PO SCH (09:00)
[2017-05-26] MEDS: CLOPIDOGREL BISULFATE 75 MG TABLET GT SCH (09:00)
[2017-05-26] MEDS: MULTIVITAMINS,THERAGRAN 1 UDTAB TABLET PO SCH (09:00)
[2017-05-26] MEDS: HYDROCODONE/APAP 5/325MG 1 EACH TABLET GT SCH ×2 (09:00→21:51)
[2017-05-26] MEDS: POTASSIUM CHLORIDE 20 MEQ POWDER PACKET GT SCH (09:00)
[2017-05-26] MEDS: ZINC SULFATE 220 MG CAPSULE GT SCH (09:00)
[2017-05-26] MEDS: DOCUSATE SODIUM LIQ 100 MG/10 ML UDC GT SCH ×2 (09:00→18:11)
[2017-05-26] MEDS: ASPIRIN 81 MG TAB.CHEW GT SCH (09:00)
[2017-05-26] MEDS: MEROPENEM 500 MG in IV NS 0.9% 50 ML IV SCH ×2 (10:15→23:43)
[2017-05-26] MEDS: HYDROGEL DRESSING 90 GM TUBE TP SCH (10:28)
[2017-05-26] MEDS: PANTOPRAZOLE 40 MG/PACK PACK GT SCH (11:30)
[2017-05-26 11:48] LABS: BILIRUBIN,DIRECT 0.6 mg/dL (0.0-0.2); BILIRUBIN,TOTAL 1.1 mg/dL (0.2-1.0); TOTAL PROTEIN, SERUM 4.9 g/dL (6.4-8.2)
--- NOTE | 2017-05-26 12:00 | NUR ---
RN NOTES BS-213 MG/DL, PATIENT HAS NO RESPIRATORY DISTRESS, G-TUBE GLYTROL FEEDING AT 50 ML/HR, INTACT, ASSIST TURN AND REPOSITION Q 2 HR, GIVEN DULCOLAX SUPPOSITORY RECTAL PRN, NEEDS ATTENDED AND ANTICIPATED, CALL LIGHT WITHIN TO REACH, SAFETY PRECAUTION MAINTAINED ALL THE TIME.
[2017-05-26 12:39] LABS: ALBUMIN 0.7 g/dL (3.4-5.0)
--- NOTE | 2017-05-26 13:18 | NUR ---
RN NOTES LAB RESULT ALBUMIN IS 0.7 , RESULT NOTIFIED NITO MORAN, CONTINUED MONITORING.
[2017-05-26] MEDS ORDERED: DIATR MEGLU/DIATRIZOATE SODIUM 30 ML BOTTLE (GASTROGRAPHIN) ONE (13:36)
[2017-05-26] MEDS: CHLORHEXIDINE GLUCONATE 15 ML UDC MM SCH ×2 (13:56→18:11)
[2017-05-26 16:00] VITALS: BP 131/65
--- NOTE | 2017-05-26 16:30 | NUR ---
RN NOTES COLLECTED STOOL OB PER MD ORDER, PATIENT GIVEN VIA G-TUBE CONTRAST FOR CT OF ABDOMEN. NEEDS ATTENDED AND ANTICIPATED, ASSIST TURN AND REPOSITION Q 2 HR, ROMERO CATH DRAIN YELLOW OUTPUT. CALL LIGHT WITHIN TO REACH, SAFETY PRECAUTION MAINTAINED ALL THE TIME WITH HELP OF UNIFORM MAKER.
[2017-05-26] MEDS ORDERED: ALBUMIN 25% 25 GM in PREMIX 1 EA IV ONE (18:00)
--- NOTE | 2017-05-26 18:00 | NUR ---
RN NOTES PATIENT CORRECTIONAL FOOD SERVICE SUPERVISOR AT THIS TIME FOR CT OF ABDOMEN BY X-TRALiliana SIFUENTES.
[2017-05-26] MEDS: VANCOMYCIN 1 GM in IV D5W 250 ML IV SCH (18:08)
[2017-05-26] MEDS ORDERED: DOSING PER PHARMACY-AMIKACI IV XX PRN (18:30)
--- NOTE | 2017-05-26 18:35 | NUR ---
RN NOTES PATIENT BACK FROM CT OF ABDOMEN, NO ACUTE DISTRESS, NO RESPIRATORY DISTRESS, F/C DRAIN YELLOW OUTPUT, ASSIST TURN AND REPOSITION Q 2 HR, HELD G-TUBE FEEDING PER MD ORDER. ENDORSED ONCOMING NURSE FOR CONTINUATION OF CARE.
[2017-05-26] MEDS ORDERED: FEE PK DOSING 1 MIN EA MC ONE (19:19)
--- NOTE | 2017-05-26 19:40 | NUR ---
INVENTORY AND PRICING ASSOCIATE NOTES RECEIVED PT IN BED, NO DISTRESS, NO SOB NOTED. PT IS NON VERBAL, OPENS EYES. TRACH IS INTACT AND PATENT, SUCTIONED PRN. ON TELE MONITOR, SINUS TACHY 106 AT THIS TIME. ON GLYTROL GTF. NO RESIDUAL NOTED. GT IS INTACT AND PATENT. NO S/S OF HYPO/ HYPERGLYCEMIA NOTED. ASPIRATION AND SAFETY PRECAUTION OBSERVED. ALL NEEDS AT THIS TIME ANTICIPATED. KEPT COMFORTABLE. AWAITING FOR MIDLINE INSERTION. CALL LIGHT WITHIN REACH. WILL CONT TO MONITOR.
[2017-05-26 20:00] VITALS: BP 113/50
[2017-05-26] MEDS ORDERED: AMIKACIN 500 MG in IV D5W 100 ML IV SCH (20:00)
--- NOTE | 2017-05-26 20:00 | NUR ---
RT RECD PT TO BE TRANSPORTED TO CT SX PT RED BLOODY SECRETIONS TRACH INTACH & SECURED RETURNED PT VENT PLUGGED IN BACK TO ORDERED SETTINGS BAG MASK ON BEDSIDE Addendum: 05/26/17 at 2002 by NICOLAS LILLY RT Amended: Links added.
--- NOTE | 2017-05-26 21:31 | NUR ---
PLACED A CALL TO DR. SOLO REGARDING LOVENOX , PT WITH ORDER FOR LOVENOX 30 MG SQ , PT'S HGB : 7.3, HCT : 23. PER DR. SOLO TO DC THE MD CHANDANA WITH N.O NOTED AND CARRIED OUT.
--- NOTE | 2017-05-26 21:35 | NUR ---
TUSHAR, MIDLINE NURSE AT BED SIDE AT THIS TIME
[2017-05-26] MEDS: SIMVASTATIN 20 MG TABLET GT SCH (21:52)
[2017-05-26] MEDS: *INSULIN REGULAR(HUMULIN R)HUM 100 UNIT/ML VIAL SQ PRN (22:17)
--- NOTE | 2017-05-26 22:32 | NUR ---
DISCUSSED WITH DR. SOLO REGARDING PT'S MD EMELYN WITH N.O NOTED AND CARRIED OUT. LAVINIA CHARGE NURSE AWARE.
[2017-05-26] MEDS: GLYTROL 1,000 ML BAG GT SCH (23:51)
[2017-05-27] VITALS (16 sets, daily range): BP systolic 94–145; BP diastolic 49–67
[2017-05-27] MEDS: BLOOD SUGAR DIAGNOSTIC 1 EACH STRIP VI SCH ×4 (06:16→22:22)
[2017-05-27] MEDS: INSULIN REGULAR, HUMAN 100 UNIT/ML 3 ML VIAL SQ PRN ×3 (06:20→18:21)
--- NOTE | 2017-05-27 07:05 | NUR ---
SUPERVISOR SHOP NOTES PT IN BED, NO DISTRESS, NO SOB NOTED. PT IS NON VERBAL, OPENS EYES. TRACH IS INTACT AND PATENT, SUCTIONED PRN. ON TELE MONITOR, SINUS RHYTHM 90 AT THIS TIME. ON GLYTROL GTF LAVERN WELL. NO RESIDUAL NOTED. GT IS INTACT AND PATENT. NO S/S OF HYPO/ HYPERGLYCEMIA NOTED. KALINA MIDLINE INTACT AND PATENT. ASPIRATION AND SAFETY PRECAUTION OBSERVED. ALL NEEDS AT THIS TIME ANTICIPATED. KEPT COMFORTABLE. CALL LIGHT WITHIN REACH. WILL ENDORSE TO NEXT SHIFT FOR DONNA. .
--- NOTE | 2017-05-27 07:20 | NUR ---
RN OPENING NOTES RECEIVED Pt RESTING IN BED. NO S/S OF ACUTE DISTRESS OR SOB NOTED. Pt IS OBTUNDED, NON-VERBAL. ON TELE READING SR 98. VENT SETTINGS: TV 500, FIO2 40%, AC 10, PEEP 5, PORTEX#8. GTUBE PATENT AND INTACT. GLYTROL RUNNING AT @50ML/HR. IV ACCESS ON KALINA MIDLINE. F/C IN PLACE DRAINING CLEAR YELLOW URINE. BED LOCKED IN THE LOWEST POSITON WITH SIDERAILS UP X2. WILL CONTINUE TO MONITOR. ASSESS AND EDUCATE PATIENT.
[2017-05-27 08:23] LABS: BASOPHILS % (AUTO) 0.2 % (0.0-2.0); EOSINOPHILS % (AUTO) 0.1 % (0.0-6.0); LYMPHOCYTES # (AUTO) 1.3 /CMM (0.8-4.8); LYMPHOCYTES % (AUTO) 4.9 % (20.0-44.0); MEAN CORPUSCULAR HEMOGLOBIN 30 PG (26.0-33.0); MEAN CORPUSCULAR HGB CONC 33 g/dl (31.0-36.0); MEAN CORPUSCULAR VOLUME 93 fL (82-100); MONOCYTES # (AUTO) 0.8 /CMM (0.1-1.30); MONOCYTES % (AUTO) 3.2 % (2.0-12.0); NEUTROPHILS # (AUTO) 23.9 /CMM (1.8-8.9); NEUTROPHILS % (AUTO) 91.6 % (43.0-81.0); PLATELET COUNT (AUTO) 126 /CMM (150-450); RDW COEFFICIENT OF VARIATION 18.6 (11.5-15.0); RED BLOOD CELL COUNT(AUTO) 2.08 MIL/uL (4.0-5.2); WHITE BLOOD COUNT (AUTO) 26.1 K/uL (4.3-11.0)
--- NOTE | 2017-05-27 08:40 | NUR ---
RN NOTES PATIENT HAS CRITICAL H/H. REPORTED TO LUISA BEAUCHAMP. ORDERS GIVEN FOR 1 UNIT OF PRBC AND TO FOLLOW UP WITH [facility] AFTER TRANSFUSION IS COMPLETED. WILL CARE OUT ORDERS GIVEN.
[2017-05-27 08:43] LABS: HEMATOCRIT 19 % (33-45); HEMOGLOBIN 6.3 g/dL (11.5-14.8)
[2017-05-27] MEDS: AMLODIPINE BESYLATE 2.5 MG TABLET GT SCH (09:00)
[2017-05-27 09:42] LABS: EOSINOPHILS % (MANUAL) 1 % (0-4); LYMPHOCYTES % (MANUAL) 8 % (16-48); MONOCYTES % (MANUAL) 3 % (0-11.0); NEUTROPHILS % (MANUAL) 88 (42-76)
[2017-05-27] MEDS: HYDROCODONE/APAP 5/325MG 1 EACH TABLET GT SCH ×2 (09:51→22:22)
[2017-05-27] MEDS: ASPIRIN 81 MG TAB.CHEW GT SCH (09:51)
[2017-05-27] MEDS: CARBIDOPA/LEVODOPA 10/100 MG 1 UDTAB GT SCH ×3 (09:51→18:07)
[2017-05-27] MEDS: ZINC SULFATE 220 MG CAPSULE GT SCH (09:51)
[2017-05-27] MEDS: DOCUSATE SODIUM LIQ 100 MG/10 ML UDC GT SCH ×2 (09:51→18:07)
[2017-05-27] MEDS: CLOPIDOGREL BISULFATE 75 MG TABLET GT SCH (09:51)
[2017-05-27] MEDS: MULTIVITAMINS,THERAGRAN 1 UDTAB TABLET PO SCH (09:51)
[2017-05-27] MEDS: ASCORBIC ACID 500 MG TABLET PO SCH (09:51)
[2017-05-27] MEDS: CHLORHEXIDINE GLUCONATE 15 ML UDC MM SCH ×2 (09:51→18:07)
[2017-05-27] MEDS: MEROPENEM 500 MG in IV NS 0.9% 50 ML IV SCH ×2 (09:55→22:21)
[2017-05-27] MEDS: POTASSIUM CHLORIDE 20 MEQ POWDER PACKET GT SCH (09:56)
--- NOTE | 2017-05-27 10:30 | NUR ---
RN NON ADMIN NOTED HELD NORVASC. BP WNL. WILL CONTINUE TO MONITOR.
[2017-05-27] MEDS: HYDROGEL DRESSING 90 GM TUBE TP SCH (10:42)
[2017-05-27 10:58] LABS: CALCIUM, SERUM 7.8 mg/dL (8.5-10.1); CARBON DIOXIDE 22 mmol/L (21-32); CHLORIDE 109 mmol/L (98-107); CREATININE 1.4 mg/dL (0.6-1.3); GLUCOSE 161 mg/dL (74-106); SODIUM SERUM 142 mmol/L (136-145); UREA NITROGEN, BLOOD 77 mg/dL (7-18)
[2017-05-27 11:35] LABS: THYROID STIMULATING HORMONE 12.776 uIU/mL (0.358-3.74)
[2017-05-27] MEDS: PANTOPRAZOLE 40 MG/PACK PACK GT SCH (12:31)
--- NOTE | 2017-05-27 16:27 | NUR ---
trach changed by dr. padgett with #8 portex without any complications
[2017-05-27] MEDS: VANCOMYCIN 1 GM in IV D5W 250 ML IV SCH (17:00)
--- NOTE | 2017-05-27 19:00 | NUR ---
DANII NON ADMIN ELI HELD. ELI TROUGH 24. WILL CONTINUE TO MONITOR.
[2017-05-27 19:21] LABS: BASOPHILS # (AUTO) 0.3 /CMM (0.0-0.2); BASOPHILS % (AUTO) 1.1 % (0.0-2.0); EOSINOPHILS # (AUTO) 0.1 /CMM (0.0-0.7); EOSINOPHILS % (AUTO) 0.3 % (0.0-6.0); HEMATOCRIT 27 % (33-45); HEMOGLOBIN 8.9 g/dL (11.5-14.8); LYMPHOCYTES # (AUTO) 1.1 /CMM (0.8-4.8); LYMPHOCYTES % (AUTO) 3.4 % (20.0-44.0); MEAN CORPUSCULAR HEMOGLOBIN 30 PG (26.0-33.0); MEAN CORPUSCULAR HGB CONC 33 g/dl (31.0-36.0); MEAN CORPUSCULAR VOLUME 89 fL (82-100); MONOCYTES # (AUTO) 1.3 /CMM (0.1-1.30); NEUTROPHILS # (AUTO) 28.8 /CMM (1.8-8.9); NEUTROPHILS % (AUTO) 91.2 % (43.0-81.0); PLATELET COUNT (AUTO) 101 /CMM (150-450); RDW COEFFICIENT OF VARIATION 15.2 (11.5-15.0); RED BLOOD CELL COUNT(AUTO) 3.01 MIL/uL (4.0-5.2)
[2017-05-27 19:33] LABS: WHITE BLOOD COUNT (AUTO) 31.6 K/uL (4.3-11.0)
--- NOTE | 2017-05-27 19:40 | NUR ---
RN OPENING NOTES RECEIVED REPORT FROM MELANIE RNCHENG. FOUND Pt RESTING IN BED. NO S/S OF ACUTE DISTRESS OR SOB NOTED. Pt IS OBTUNDED, NON-VERBAL. ON TELE & VENT. VENT SETTINGS: TV 500, FIO2 40%, AC 10, PEEP 5, PORTEX#8. GTF: GLYTROL @50ML/HR TURN ON @2230. IV ACCESS ON KALINA MIDLINE. SAFETY MEASURES IN PLACE. BED LOW, LOCKED, HOB ELEVATED, SIDE RAILS UP, CALL LIGHT AND BEDSIDE TABLE WITHIN REACH. WILL CONTINUE TO MONITOR Pt THROUGHOUT THE NIGHT FOR SAFETY.
--- NOTE | 2017-05-27 20:27 | NUR ---
RN CLOSING NOTES PATIENT REMAINS ON BED REST. APPEARS COMFORTABLE. NO ACUTE DISTRESS. RESPIRATIONS EVEN AND UNLABORED. PATIENT TOLERATING VENT SUPPORT. GTUBE FEEDING ON HOLD UNTIL 2229 AND ENDORSED. ALL NEEDS MET. ALL MEDS GIVEN APPROPRIATE. WILL ENDORSE TO NIGHT RN FOR DONNA.
--- NOTE | 2017-05-27 22:20 | NUR ---
HS BG 118. NO INSULIN COVERAGE NEEDED AT THIS TIME. WILL CONTINUE TO MONITOR Pt's BG LEVELS AT 0630.
[2017-05-27] MEDS: SIMVASTATIN 20 MG TABLET GT SCH (22:21)
[2017-05-27 22:36] LABS: BAND % (MANUAL) 2 % (0.0-5.0); EOSINOPHILS % (MANUAL) 1 % (0-4); LYMPHOCYTES % (MANUAL) 4 % (16-48); MONOCYTES % (MANUAL) 5 % (0-11.0); NEUTROPHILS % (MANUAL) 88 (42-76)
[2017-05-28] VITALS (8 sets, daily range): BP systolic 100–114; BP diastolic 43–59
[2017-05-28] MEDS: IV 1/2NS 1000 ML 1,000 ML IV PRN (06:15)
[2017-05-28] MEDS: GLYTROL 1,000 ML BAG GT SCH (06:15)
--- NOTE | 2017-05-28 06:35 | NUR ---
AC BG 106. NO INSULIN COVERAGE NEEDED AT THIS TIME. ON GLYTROL GTF.
--- NOTE | 2017-05-28 06:40 | NUR ---
RN CLOSING NOTES NO SIGNIFICANT CHANGES IN Pt's CONDITION. Pt REMAINS STABLE AT THIS TIME. NO S/S OF ACUTE DISTRESS OR SOB NOTED DURING THE SHIFT. ALL NEEDS MET AND ATTENDED TO. SAFETY MEASURES IN PLACE. WILL ENDORSE TO DAYSHIFT RN FOR Pt's DONNA. TELE READING SR 97
[2017-05-28] MEDS: BLOOD SUGAR DIAGNOSTIC 1 EACH STRIP VI SCH ×4 (07:37→21:45)
--- NOTE | 2017-05-28 07:49 | NUR ---
CUTTER HAND: INITIAL NOTE RECEIVED PT ON-VERBAL. ABLE TO OPEN EYES. ON TELE MONITORING. ON [facility] VENTILATOR. PORTEX 8, AC 10, TV 500, PEEP 5, FIO2 40%. SATING AT 100%. NO DISTRESS NOTED. NO PAIN NOTED USING FLACC SCALE. USES DIAPER. ROMERO CATH IN PLACE AND DRAINING. BED REST. ON GLYTROL 50ML/HR ON G-TUBE FOR 20 HOURS. TO BE TURNED OF AT 1830 AND ON AT 2230. KALINA MIDLINE RUNNING 1/2NS AT 75ML/HR. SITE CLEAR AND PATENT. DRESSING INTACT. ON CONTACT ISOLATION FOR HX OF ESBL URINE. RESTING COMFORTABLY IN BED. JEFFREY LIGHT WITHIN REACH.
[2017-05-28] MEDS: MEROPENEM 500 MG in IV NS 0.9% 50 ML IV SCH ×2 (08:14→21:44)
[2017-05-28] MEDS: HYDROCODONE/APAP 5/325MG 1 EACH TABLET GT SCH ×2 (08:15→21:45)
[2017-05-28] MEDS: CLOPIDOGREL BISULFATE 75 MG TABLET GT SCH (08:15)
[2017-05-28] MEDS: CARBIDOPA/LEVODOPA 10/100 MG 1 UDTAB GT SCH ×3 (08:15→16:51)
[2017-05-28] MEDS: ZINC SULFATE 220 MG CAPSULE GT SCH (08:15)
[2017-05-28] MEDS: AMLODIPINE BESYLATE 2.5 MG TABLET GT SCH (08:16)
[2017-05-28] MEDS: ASCORBIC ACID 500 MG TABLET PO SCH (08:16)
[2017-05-28] MEDS: ASPIRIN 81 MG TAB.CHEW GT SCH (08:16)
[2017-05-28] MEDS: CHLORHEXIDINE GLUCONATE 15 ML UDC MM SCH ×2 (08:16→16:51)
[2017-05-28] MEDS: MULTIVITAMINS,THERAGRAN 1 UDTAB TABLET PO SCH (08:16)
[2017-05-28] MEDS: DOCUSATE SODIUM LIQ 100 MG/10 ML UDC GT SCH ×2 (08:16→16:51)
[2017-05-28] MEDS: POTASSIUM CHLORIDE 20 MEQ POWDER PACKET GT SCH (08:17)
[2017-05-28] MEDS: HYDROGEL DRESSING 90 GM TUBE TP SCH (08:18)
[2017-05-28 08:19] LABS: BASOPHILS # (AUTO) 0.1 /CMM (0.0-0.2); BASOPHILS % (AUTO) 0.2 % (0.0-2.0); EOSINOPHILS % (AUTO) 0.1 % (0.0-6.0); HEMATOCRIT 28 % (33-45); HEMOGLOBIN 9.1 g/dL (11.5-14.8); LYMPHOCYTES # (AUTO) 1.2 /CMM (0.8-4.8); LYMPHOCYTES % (AUTO) 3.6 % (20.0-44.0); MEAN CORPUSCULAR HEMOGLOBIN 29 PG (26.0-33.0); MEAN CORPUSCULAR HGB CONC 32 g/dl (31.0-36.0); MEAN CORPUSCULAR VOLUME 90 fL (82-100); MONOCYTES # (AUTO) 1.5 /CMM (0.1-1.30); MONOCYTES % (AUTO) 4.7 % (2.0-12.0); NEUTROPHILS # (AUTO) 29.6 /CMM (1.8-8.9); NEUTROPHILS % (AUTO) 91.4 % (43.0-81.0); PLATELET COUNT (AUTO) 86 /CMM (150-450); RDW COEFFICIENT OF VARIATION 16.9 (11.5-15.0); RED BLOOD CELL COUNT(AUTO) 3.15 MIL/uL (4.0-5.2)
[2017-05-28 08:31] LABS: AMYLASE 49 U/L (25-115); CALCIUM, SERUM 7.8 mg/dL (8.5-10.1); CARBON DIOXIDE 20 mmol/L (21-32); CHLORIDE 109 mmol/L (98-107); CREATININE 1.4 mg/dL (0.6-1.3); GLUCOSE 147 mg/dL (74-106); LIPASE 285 U/L (73-393); POTASSIUM 5.2 mmol/L (3.5-5.1); SODIUM SERUM 138 mmol/L (136-145); UREA NITROGEN, BLOOD 79 mg/dL (7-18)
[2017-05-28 08:36] LABS: WHITE BLOOD COUNT (AUTO) 32.4 K/uL (4.3-11.0)
[2017-05-28 08:44] LABS: C-REACTIVE PROTEIN 24.5 mg/dL (0.0-0.9)
[2017-05-28 09:41] LABS: BAND % (MANUAL) 15 % (0.0-5.0); LYMPHOCYTES % (MANUAL) 5 % (16-48); MONOCYTES % (MANUAL) 7 % (0-11.0); NEUTROPHILS % (MANUAL) 73 (42-76)
[2017-05-28] MEDS: AMIKACIN 500 MG in IV D5W 100 ML IV SCH (09:50)
[2017-05-28] MEDS: INSULIN REGULAR, HUMAN 100 UNIT/ML 3 ML VIAL SQ PRN ×2 (11:50→16:55)
[2017-05-28] MEDS: PANTOPRAZOLE 40 MG/PACK PACK GT SCH (11:51)
[2017-05-28 14:23] LABS: BILIRUBIN,DIRECT 0.8 mg/dL (0.0-0.2); BILIRUBIN,TOTAL 1.5 mg/dL (0.2-1.0)
[2017-05-28] MEDS: LEVOTHYROXINE SODIUM 25 MCG TABLET PO SCH (15:49)
--- NOTE | 2017-05-28 15:50 | NUR ---
NURSE ASSESSOR NOTE ADMINISTERING MEDICATION PRESCRIBED COVERING FOR DHAVAL RN.
[2017-05-28] MEDS: VANCOMYCIN 1 GM in IV D5W 250 ML IV SCH (16:51)
--- NOTE | 2017-05-28 16:56 | NUR ---
DID NOT ADMINISTER VANCOMYCIN. VANCO THROUGH DONE 05/27/17 WAS 25. ORDER TO HOLD IF >20. AWAITING NEW ORDERS.
--- NOTE | 2017-05-28 18:40 | NUR ---
YARD JOCKEY: CLOSING NOTE PT NON-VERBAL. OPENS AND CLOSES EYES. ON MECHANICAL VENTILATION. SETTING INCLUDE PORTEX 8, AC 10, PEEP 5, TV 500, FIO2 40%, ST AT 100 BPM. WOUND CARE DONE ORDERED. NO PAIN USING FLACC SCALE. NO DISTRESS NOTED. ON GLYTROL 50ML/HR FOR 20HRS. STOP AT 1830. RESTART AT 2230. WILL ENDORSE TO NEXT SHIFT. RESIDUAL <5ML. MEDICATIONS GIVEN THROUGH G-TUBE. SITE CLEAR AND PATENT. INSULIN ADMINISTERED PER SLIDING SCALE. ROMERO CATH IN PLACE AND DRAINING. OUTPUT 600ML. R UA MIDLINE RUNNING 1/2 NS AT 75ML/HR. SITE CLEAR AND PATENT. RESTING COMFORTABLY IN BED. ON CONTACT ISOLATION FOR HX OF ESBL URINE.
--- NOTE | 2017-05-28 19:40 | NUR ---
RN OPENING NOTES RECEIVED REPORT FROM DHAVAL NAVARRO RN. FOUND Pt RESTING IN BED. NO S/S OF ACUTE DISTRESS OR SOB NOTED. Pt IS OBTUNDED, NON-VERBAL. ON TELE & VENT. VENT SETTINGS: TV 500, FIO2 40%, AC 10, PEEP 5, PORTEX#8. GTF: GLYTROL @65ML/HR CONTINUOUS. IV ACCESS ON KALINA MIDLINE. SAFETY MEASURES IN PLACE. BED LOW, LOCKED, HOB ELEVATED, SIDE RAILS UP, CALL LIGHT AND BEDSIDE TABLE WITHIN REACH. WILL CONTINUE TO MONITOR Pt THROUGHOUT THE NIGHT FOR SAFETY.
[2017-05-28] MEDS ORDERED: GLYTROL 1,000 ML BAG GT SCH (21:00)
[2017-05-28] MEDS: SIMVASTATIN 20 MG TABLET GT SCH (21:45)
--- NOTE | 2017-05-28 22:00 | NUR ---
RN NOTES INFORMED THAT GTF WAS CHANGED TO GLYTROL @65ML/HR CONTINUOUS.
--- NOTE | 2017-05-28 22:30 | NUR ---
RN NOTES HS BG 60. JUST STARTED ON CONTINUOUS GTF. WILL RECHECK BG LEVEL.
--- NOTE | 2017-05-28 23:30 | NUR ---
RN NOTES RECHECKED BG. WENT UP TO 140. ADMINISTERED 2UN OF INSULIN PER SLIDING SCALE. ON CONTINUOUS GTF.
[2017-05-29] VITALS: BP 115/45
[2017-05-29] MEDS: *INSULIN REGULAR(HUMULIN R)HUM 100 UNIT/ML VIAL SQ PRN ×2 (00:12→22:19)
[2017-05-29 04:00] VITALS: BP 120/57
--- NOTE | 2017-05-29 04:00 | NUR ---
RN NOTES SPOKE WITH DR. SOLO ON PHONE. INFORMED THAT Pt HAS HX OF CHF AND HAS EDEMA BLE & BUE +4. D/C'd IVF OF 1/2NS @75ML/HR.
--- NOTE | 2017-05-29 06:30 | NUR ---
RN NOTES AC ACCUCHECK BG 135. ADMINISTERED 2UN OF INSULIN PER SLIDING SCALE.
--- NOTE | 2017-05-29 06:50 | NUR ---
RN CLOSING NOTES NO SIGNIFICANT CHANGES IN Pt's CONDITION. Pt REMAINS STABLE AT THIS TIME. NO S/S OF ACUTE DISTRESS OR SOB NOTED DURING SHIFT. ALL NEEDS MET AND ATTENDED TO. SAFETY MEASURES IN PLACE. WILL ENDORSE TO DAYSHIFT RN FOR Pt's DONNA. TELE READING SR 99-ST 101.
[2017-05-29] MEDS: INSULIN REGULAR, HUMAN 100 UNIT/ML 3 ML VIAL SQ PRN ×3 (07:10→17:30)
[2017-05-29] MEDS: BLOOD SUGAR DIAGNOSTIC 1 EACH STRIP VI SCH ×4 (07:46→21:51)
[2017-05-29 08:00] VITALS: BP 124/69
--- NOTE | 2017-05-29 08:00 | NUR ---
MS/TELE NOTES. BOMB SQUAD COMMANDER NITO Stevens NOTIFIED OF BUN 85, NO NEW ORDERS OBTAINED. WILL CONTINUE TO MONITOR.
[2017-05-29 08:13] LABS: CALCIUM, SERUM 7.9 mg/dL (8.5-10.1); CARBON DIOXIDE 20 mmol/L (21-32); CHLORIDE 109 mmol/L (98-107); CREATININE 1.6 mg/dL (0.6-1.3); GLUCOSE 178 mg/dL (74-106); SODIUM SERUM 140 mmol/L (136-145)
[2017-05-29 08:14] LABS: UREA NITROGEN, BLOOD 85 mg/dL (7-18)
[2017-05-29] MEDS: ASPIRIN 81 MG TAB.CHEW GT SCH (08:49)
[2017-05-29] MEDS: DOCUSATE SODIUM LIQ 100 MG/10 ML UDC GT SCH ×2 (08:50→16:44)
[2017-05-29] MEDS: CLOPIDOGREL BISULFATE 75 MG TABLET GT SCH (08:51)
[2017-05-29] MEDS: HYDROCODONE/APAP 5/325MG 1 EACH TABLET GT SCH ×2 (08:51→21:50)
[2017-05-29] MEDS: ZINC SULFATE 220 MG CAPSULE GT SCH (08:52)
[2017-05-29] MEDS: MEROPENEM 500 MG in IV NS 0.9% 50 ML IV SCH (08:52)
[2017-05-29] MEDS: CHLORHEXIDINE GLUCONATE 15 ML UDC MM SCH ×2 (08:52→16:45)
[2017-05-29] MEDS: CARBIDOPA/LEVODOPA 10/100 MG 1 UDTAB GT SCH ×3 (08:52→16:45)
[2017-05-29] MEDS: ASCORBIC ACID 500 MG TABLET PO SCH (08:53)
[2017-05-29 08:54] LABS: BASOPHILS % (AUTO) 0.1 % (0.0-2.0); EOSINOPHILS % (AUTO) 0.1 % (0.0-6.0); HEMATOCRIT 28 % (33-45); HEMOGLOBIN 8.7 g/dL (11.5-14.8); LYMPHOCYTES # (AUTO) 1.2 /CMM (0.8-4.8); LYMPHOCYTES % (AUTO) 4.4 % (20.0-44.0); MEAN CORPUSCULAR HEMOGLOBIN 29 PG (26.0-33.0); MEAN CORPUSCULAR HGB CONC 31 g/dl (31.0-36.0); MEAN CORPUSCULAR VOLUME 92 fL (82-100); MONOCYTES # (AUTO) 1.4 /CMM (0.1-1.30); MONOCYTES % (AUTO) 4.9 % (2.0-12.0); NEUTROPHILS # (AUTO) 25.9 /CMM (1.8-8.9); NEUTROPHILS % (AUTO) 90.5 % (43.0-81.0); PLATELET COUNT (AUTO) 55 /CMM (150-450); RDW COEFFICIENT OF VARIATION 17.5 (11.5-15.0); RED BLOOD CELL COUNT(AUTO) 3.05 MIL/uL (4.0-5.2); WHITE BLOOD COUNT (AUTO) 28.7 K/uL (4.3-11.0)
[2017-05-29] MEDS: LEVOTHYROXINE SODIUM 25 MCG TABLET PO SCH (08:54)
[2017-05-29] MEDS: AMLODIPINE BESYLATE 2.5 MG TABLET GT SCH (08:55)
[2017-05-29] MEDS: MULTIVITAMINS,THERAGRAN 1 UDTAB TABLET PO SCH (08:56)
[2017-05-29] MEDS: HYDROGEL DRESSING 90 GM TUBE TP SCH (08:59)
--- NOTE | 2017-05-29 09:00 | NUR ---
MS RN OPENING NOTES PT WITH ADDITIONAL CONTACT PRECAUTIONS R/T ESBL HX. PT RECEIVED NON VERBAL WITH EYES OPEN. A&0 SCORE UN-ASSESSABLE. PT RECEIVED IN LOW SEMI-FOWLERS POSITION, BED IN LOWEST LOCKED POSITION WITH HANDRAILS X4 AND CALL JOSEPH WITHIN REACH. PT IS WITHOUT S/S OF DISTRESS, PAIN OR SOB. PT VENT SETTINGS NOTED. PT WITH R UA MIDLINE FLUSHED PATENT AND SALINE LOCKED. WILL CONTINUE TO MONITOR THROUGH OUT DAYSHIFT. Addendum: 05/29/17 at 1951 by NEAL ARIAS RN PT IS MS/TELE
[2017-05-29 10:52] LABS: BAND % (MANUAL) 2 % (0.0-5.0); MONOCYTES % (MANUAL) 2 % (0-11.0); NEUTROPHILS % (MANUAL) 96 (42-76)
[2017-05-29 12:00] VITALS: BP 99/54
[2017-05-29] MEDS ORDERED: SODIUM POLYSTYRENE SULFONATE 15 G/60 ML BOTTLE PO ONE ×2 (12:30→13:30)
[2017-05-29] MEDS: PANTOPRAZOLE 40 MG/PACK PACK GT SCH (13:32)
--- NOTE | 2017-05-29 13:54 | NUR ---
RT PT HAS A LEAK, STOMA ENLARGED VOLUME ESCAPING BELOW TRACH MUST BE COVERED BY GAUZE NURSE AWARE. PT SAT GOOD AND VOLUME REACHED WHEN STOMA IS COVERED AND POSITIONED PROPERLY
[2017-05-29] MEDS ORDERED: VANCOMYCIN 1 GM in IV D5W 250 ML IV SCH (15:00)
[2017-05-29 16:00] VITALS: BP 99/46
--- NOTE | 2017-05-29 16:00 | NUR ---
MS/TELE NURSE NOTES MOLDING PRESS OPERATOR NITO Stevens NOTIFIED REGARDING BP OF 99/46, PULSE 99, PT ASYMPTOMATIC WITHOUT OBVIOUS SIGNS OF DISTRESS. ORDERS OBTAINED TO CONTINUE MONITORING. ALSO NOTIFIED REGARDING ARTERIAL DOPPLER RESULTS AND DUPLICATE ORDER OF kEXCELYATE, ORDERED TO ADMIN ONLY 1 DOSE. PT BP RECHECKED NOTED 106/49, PULSE 100. WILL CONT TO MONITOR.
--- NOTE | 2017-05-29 19:43 | NUR ---
MS RN CLOSING NOTES PT WITH CONTACT PRECAUTIONS R/T: ESBL URINE. PT NON VERBAL EYES OPEN. NO SIGNS OF ACUTE DISTRESS AT THIS TIME. PT WITH VENT AND TELE MONITORING. R U.A MIDLINE INTACT AND OPERATIONAL. ROMERO CATH OPERATIONAL. BED IN LOWEST LOCKED POSITION WITH HANDRAILSX3 AND CALL JOSEPH WITHIN REACH. ALL DAY SHIFT DUTIES ATTENDED TO, WILL ENDORSE TO NIGHT NURSE.
--- NOTE | 2017-05-29 19:45 | NUR ---
RN OPENING NOTES RECEIVED REPORT FROM KATHRYN NAVARRO RN. FOUND Pt RESTING IN BED. NO S/S OF ACUTE DISTRESS OR SOB NOTED. Pt IS OBTUNDED, NON-VERBAL. ON TELE & VENT. VENT SETTINGS: TV 500, FIO2 40%, AC 10, PEEP 5, PORTEX#8. GTF: GLYTROL @65ML/HR CONTINUOUS. IV ACCESS ON KALINA MIDLINE. SAFETY MEASURES IN PLACE. BED LOW, LOCKED, HOB ELEVATED, SIDE RAILS UP, CALL LIGHT AND BEDSIDE TABLE WITHIN REACH. WILL CONTINUE TO MONITOR Pt THROUGHOUT THE NIGHT FOR SAFETY.
[2017-05-29 20:00] VITALS: BP 100/50
[2017-05-29] MEDS: AMIKACIN 500 MG in IV D5W 100 ML IV SCH (21:51)
[2017-05-29] MEDS: METRONIDAZOLE 500 MG TABLET PO SCH (21:51)
[2017-05-29] MEDS: SIMVASTATIN 20 MG TABLET GT SCH (21:51)
--- NOTE | 2017-05-29 21:55 | NUR ---
RN NOTES HS BG 189. ADMINISTERED 3UN OF INSULIN PER SLIDING SCALE.
--- NOTE | 2017-05-29 22:45 | NUR ---
RN NOTES SPOKE WITH DR. SOLO ON THE PHONE. NOTIFIED MD ABOUT Pt's GTUBE. Pt's GT RESIDUAL WAS OVER 120CC. YELLOW COLORED, ALSO FOUND A CLUMP OF RED COLORED MUCUS IN THE RESIDUAL. GT SITE WAS ALSO LEAKING ALL OVER Pt's STOMACH. STOPPED FEEDING PER MD ORDER FOR OVERNIGHT. KEEP NPO FOR NOW. COVERED GT SITE WITH COLOSTOMY BAG. WILL CONTINUE TO MONITOR Pt's GT SITE.
[2017-05-30] VITALS: BP 106/53
[2017-05-30 04:00] VITALS: BP 91/63
[2017-05-30 04:07] LABS: *SPE A/G RATIO 0.5 (0.7-1.7); *SPE ALBUMIN 1.6 g/dL (2.9-4.4); *SPE ALPHA-1-GLOBULIN 0.5 g/dL (0.0-0.4); *SPE ALPHA-2-GLOBULIN 0.8 g/dL (0.4-1.0); *SPE BETA GLOBULIN 0.7 g/dL (0.7-1.3); *SPE GLOBULIN, TOTAL 3.2 g/dL (2.2-3.9); *SPE M-SPIKE Not Observed g/dL (Not Observed); *SPEGAMMA GLOBULIN 1.2 g/dL (0.4-1.8)
[2017-05-30] MEDS: METRONIDAZOLE 500 MG TABLET PO SCH (05:00)
--- NOTE | 2017-05-30 06:30 | NUR ---
AC BG 132. HELD INSULIN AT THIS TIME DUE TO NPO STATUS. STOPPED GTFEED PER MD ORDER.
--- NOTE | 2017-05-30 06:32 | NUR ---
RN NOTES SPOKE WITH DR SOLO ON THE PHONE. INFORMED MD OF Pt's CRITICAL HIGH OF AMIKACIN TROUGH 6.9. HOLD DOSE PER MD.
--- NOTE | 2017-05-30 06:40 | NUR ---
RN CLOSING NOTES. NO OTHER SIGNIFICANT CHANGES IN Pt's CONDITION. HELD MEDS DUE TO NPO STATUS. GT SITE IS STILL LEAKING. COLOSTOMY BAG OVER GT SITE TO COLLECT LEAKAGE. ALL NEEDS MET AND ATTENDED TO. SAFETY MEASURES IN PLACE. WILL ENDORSE TO MELANIE RN FOR Pt's DONNA.
--- NOTE | 2017-05-30 07:29 | NUR ---
TELE/RN OPENING NOTES RECEIVED PT LYING COMFORTABLY IN BED AT MODERATE HIGH BACKREST POSITION. AWAKE, OBTUNDED, NON-VERBAL AND IN NO ACUTE SIGNS OF DISTRESS. G-TUBE FEEDING ON HOLD DUE TO LEAKING FROM GT SITE. RECEIVED REPORT FROM NIGHT NURSE THAT PT IS NPO PENDING FURTHER ORDER FROM MD. ON TELE-MONITORING WITH CURRENT READING OF NSR WITH HR OF 95-105. PT ON MECHANICAL VENT WITH SETTINGS: AC TV 500, R 10 FIO2 40%, PEEP 5, PORTEX#8. PT WITH KALINA MIDLINE INTACT AND PATENT. ROMERO CATHETER IN PLACED DRAINING CLEAR YELLOW URINE TO BEDSIDE DRAINAGE BAG. SAFETY MEASURES IN PLACE. BED LOW, LOCKED, HOB ELEVATED, SIDE RAILS UP, CALL LIGHT AND BEDSIDE TABLE WITHIN REACH. WILL CONTINUE TO MONITOR PT THROUGHOUT THE DAY ACCORDINGLY..
[2017-05-30] MEDS: LEVOTHYROXINE SODIUM 25 MCG TABLET PO SCH (07:30)
[2017-05-30] MEDS: BLOOD SUGAR DIAGNOSTIC 1 EACH STRIP VI SCH (07:46)
[2017-05-30 08:00] VITALS: BP 119/55
[2017-05-30 08:12] LABS: CALCIUM, SERUM 7.9 mg/dL (8.5-10.1); CARBON DIOXIDE 15 mmol/L (21-32); CHLORIDE 106 mmol/L (98-107); CREATININE 1.8 mg/dL (0.6-1.3); GLUCOSE 140 mg/dL (74-106); MAGNESIUM 2.8 mg/dL (1.8-2.4); PHOSPHORUS 7.7 mg/dL (2.5-4.9); POTASSIUM 5.9 mmol/L (3.5-5.1); SODIUM SERUM 136 mmol/L (136-145)
[2017-05-30 08:14] LABS: UREA NITROGEN, BLOOD 97 mg/dL (7-18)
[2017-05-30 08:24] LABS: BASOPHILS # (AUTO) 0.1 /CMM (0.0-0.2); BASOPHILS % (AUTO) 0.2 % (0.0-2.0); EOSINOPHILS # (AUTO) 0.1 /CMM (0.0-0.7); EOSINOPHILS % (AUTO) 0.1 % (0.0-6.0); HEMATOCRIT 31 % (33-45); HEMOGLOBIN 9.6 g/dL (11.5-14.8); LYMPHOCYTES # (AUTO) 0.9 /CMM (0.8-4.8); LYMPHOCYTES % (AUTO) 2.2 % (20.0-44.0); MEAN CORPUSCULAR HEMOGLOBIN 29 PG (26.0-33.0); MEAN CORPUSCULAR HGB CONC 32 g/dl (31.0-36.0); MEAN CORPUSCULAR VOLUME 92 fL (82-100); MONOCYTES % (AUTO) 2.6 % (2.0-12.0); NEUTROPHILS # (AUTO) 37.3 /CMM (1.8-8.9); NEUTROPHILS % (AUTO) 94.9 % (43.0-81.0); RDW COEFFICIENT OF VARIATION 17.1 (11.5-15.0); RED BLOOD CELL COUNT(AUTO) 3.33 MIL/uL (4.0-5.2)
[2017-05-30 08:31] LABS: PLATELET COUNT (AUTO) 27 /CMM (150-450); WHITE BLOOD COUNT (AUTO) 39.3 K/uL (4.3-11.0)
[2017-05-30 09:00] VITALS: BP 119/58
[2017-05-30] MEDS: CARBIDOPA/LEVODOPA 10/100 MG 1 UDTAB GT SCH (09:00)
[2017-05-30] MEDS: HYDROCODONE/APAP 5/325MG 1 EACH TABLET GT SCH (09:00)
[2017-05-30] MEDS: DOCUSATE SODIUM LIQ 100 MG/10 ML UDC GT SCH (09:00)
[2017-05-30] MEDS: AMLODIPINE BESYLATE 2.5 MG TABLET GT SCH (09:00)
[2017-05-30] MEDS: ZINC SULFATE 220 MG CAPSULE GT SCH (09:00)
[2017-05-30] MEDS: ASPIRIN 81 MG TAB.CHEW GT SCH (09:00)
[2017-05-30] MEDS: CLOPIDOGREL BISULFATE 75 MG TABLET GT SCH (09:00)
[2017-05-30] MEDS: ASCORBIC ACID 500 MG TABLET PO SCH (09:00)
[2017-05-30] MEDS: MULTIVITAMINS,THERAGRAN 1 UDTAB TABLET PO SCH (09:00)
[2017-05-30] MEDS: CHLORHEXIDINE GLUCONATE 15 ML UDC MM SCH (09:44)
[2017-05-30] MEDS: HYDROGEL DRESSING 90 GM TUBE TP SCH (09:46)
--- NOTE | 2017-05-30 10:27 | NUR ---
RN NOTES PT'S WITH LEAKING G-TUBE, ALL MORNING MEDS VIA GTUBE NOT GIVEN PT IS NPO. INFORMED DOMESTIC MAID NIKHIL REGARDING PT'S GTUBE AND SAID THE HE'LL LOOK AT IT. WILL CONTINUE TO MONITOR.
[2017-05-30 11:15] LABS: EOSINOPHILS % (MANUAL) 1 % (0-4); LYMPHOCYTES % (MANUAL) 7 % (16-48); MONOCYTES % (MANUAL) 3 % (0-11.0); NEUTROPHILS % (MANUAL) 89 (42-76)
--- NOTE | 2017-05-30 11:15 | NUR ---
RN NOTES RECEIVED CALL FROM LABORATORY THAT PT HAS CRITICAL LABS. WBC 39.3, PLATELET 27, BUN 97. INFORMED SEAM RUBBER NIKHIL IMMEDIATELY AND SAID HE WILL COME AND CHECK PT. WILL CONTINUE TO MONITOR
[2017-05-30] MEDS: PANTOPRAZOLE 40 MG/PACK PACK GT SCH (11:30)
--- NOTE | 2017-05-30 12:26 | NUR ---
RN NOTES I WAS INFORMED BY SHEAR OPERATOR HELPER AT 1140 THAT PT HAS LOW BP 62/32MMHG, WENT TO CHECK PT AND OBSERVED PT WITH SHALLOW SLOW BREATHING AND WITH THIN SECRETIONS COMING OUT OF HER MOUTH, SP02 UN-ABLE TO GET READING AND PT NOT RESPONDING TO VERBAL AND TACTILE STIMULI. CALLED [facility]PONSE. STARTED AMBUBAGGING PT AND SUCTIONS ORALLY AND TRACHEALLY PRODUCING MINIMAL AMOUNT OF WHITE THIN SECRETIONS. V/S DURING EMERGENCY CARE: BP 93/52MMHGM, BLOOD SUGAR 52MG/DL, RESPIRATION, HR, SPO2 NOT APPRECIATED. PT'S MONITOR SUDDENLY WENT TO ASYSTOLE AND UN-ABLE TO APPRECIATE ALL V/S. PT IS DNR. DR CHRISTEN DRIVER PRONOUNCED PT AT 1154H. [facility] CALLED AND SON CHITRA INFORMED BY NAKITA MORAN. SON GAVE AUTHORIZATION TO RELEASE PT'S BODY TO [facility].
== END 2017-05-30 12:00 | disposition expired | DRG 870 ==
LOC: ER 14:51 → TELE 17:02 → MED 05-29 09:29 → TELE 05-29 17:23
PROVIDERS: ADMIT Internal Medicine; ATTEND Internal Medicine
PROC: 5A1955Z Respiratory Ventilation, Greater than 96 Consecutive Hours (ICD-10-PCS; principal; 2017-05-22)
PROC: 05H533Z Insertion of Infusion Device into Right Subclavian Vein, Percutaneous Approach (ICD-10-PCS; 2017-05-26)
PROC: 0B21XFZ Change Tracheostomy Device in Trachea, External Approach (ICD-10-PCS; 2017-05-27)
PROC: 30233N1 Transfusion of Nonautologous Red Blood Cells into Peripheral Vein, Percutaneous Approach (ICD-10-PCS; 2017-05-27)
DX: A41.9 Sepsis, unspecified organism (principal); J96.21 Acute and chronic respiratory failure with hypoxia; N17.0 Acute kidney failure with tubular necrosis; E43 Unspecified severe protein-calorie malnutrition; J95.851 Ventilator associated pneumonia; L89.154 Pressure ulcer of sacral region, stage 4; D61.818 Other pancytopenia; G92 Toxic encephalopathy; Z99.11 Dependence on respirator [ventilator] status; R53.2 Functional quadriplegia; D68.59 Other primary thrombophilia; I13.0 Hypertensive heart and chronic kidney disease with heart failure and stage 1 through stage 4 chronic kidney disease, or unspecified chronic kidney disease; J44.0 Chronic obstructive pulmonary disease with (acute) lower respiratory infection; N39.0 Urinary tract infection, site not specified; I50.32 Chronic diastolic (congestive) heart failure; Z93.0 Tracheostomy status; I48.0 Paroxysmal atrial fibrillation; D63.8 Anemia in other chronic diseases classified elsewhere; E78.5 Hyperlipidemia, unspecified; I25.10 Atherosclerotic heart disease of native coronary artery without angina pectoris; N18.9 Chronic kidney disease, unspecified; K21.9 Gastro-esophageal reflux disease without esophagitis; Z86.718 Personal history of other venous thrombosis and embolism; Z86.73 Personal history of transient ischemic attack (TIA), and cerebral infarction without residual deficits; B96.4 Proteus (mirabilis) (morganii) as the cause of diseases classified elsewhere; E03.9 Hypothyroidism, unspecified; E83.51 Hypocalcemia; F02.80 Dementia in other diseases classified elsewhere, unspecified severity, without behavioral disturbance, psychotic disturbance, mood disturbance, and anxiety; G20 Parkinson's disease; R65.20 Severe sepsis without septic shock; Z66 Do not resuscitate; Z93.1 Gastrostomy status; Z85.820 Personal history of malignant melanoma of skin; R13.10 Dysphagia, unspecified; M19.90 Unspecified osteoarthritis, unspecified site; E87.5 Hyperkalemia; D50.9 Iron deficiency anemia, unspecified; Y84.8 Other medical procedures as the cause of abnormal reaction of the patient, or of later complication, without mention of misadventure at the time of the procedure; Y82.8 Other medical devices associated with adverse incidents; Y92.129 Unspecified place in nursing home as the place of occurrence of the external cause; E88.09 Other disorders of plasma-protein metabolism, not elsewhere classified; S81.802A Unspecified open wound, left lower leg, initial encounter; S81.801A Unspecified open wound, right lower leg, initial encounter; D18.03 Hemangioma of intra-abdominal structures; E80.6 Other disorders of bilirubin metabolism; B96.5 Pseudomonas (aeruginosa) (mallei) (pseudomallei) as the cause of diseases classified elsewhere
CPT/HCPCS: 31720; 36415; 71010-TC; 71250-TC; 76770-TC; 80048-TC; 80061-TC; 80076-TC; 80150; 80202-TC; 81000-TC; 82150-TC; 82247-TC; 82248-TC; 82272-TC; 82728-TC; 82746; 82962-TC; 83540-TC; 83605-TC; 83690-TC; 83735-TC; 84100-TC; 84155; 84165; 84439-TC; 84443-TC; 84484-TC; 85025-TC; 85652-TC; 85730-TC; 86140-TC; 86850-TC; 86921-TC; 87040-TC; 87070-TC; 87081-TC; 87086-TC; 87186-TC; 93307-TC; 93970-TC; 94002-TC; 94003-TC; 94762-TC; A4216; A4606; A6248; A6253; A6402; A6403; J0278; J1650; J1815; J2185; J2543; J3370; J3490; J7030; J7060; P9016-BL; P9047; Q9963